=== PATIENT | male | born 1990 | race Caucasian/White ===

== ENCOUNTER 2021-10-02 13:14 | Outpatient (REF) | payer MEDICAID, SELFPAY ==
--- NOTE | ~2021-10-02 | XR_ITS ---
EXAMINATION: XR LUMBOSACRAL SPINE CLINICAL INFORMATION: Low back pain. COMPARISON: None TECHNIQUE: Three views of the lumbosacral spine. FINDINGS: Normal lumbar segmentation with 5 nonrib-bearing lumbar vertebrae of normal height and normal lumbar lordosis. No vertebral compression, spondylolisthesis, disc narrowing, destructive process. No erosive changes. Normal bony mineralization. The SI joints and visualized sacrum are unremarkable. XR/XR lumbar spine 2-3V IMPRESSION: Unremarkable examination.
== END 2021-10-02 13:15 | disposition home or self-care (01) ==
LOC: HO.HMGCX 13:14
PROVIDERS: PCP Internal Medicine; Visit Provider Internal Medicine
DX: M54.50 Low back pain, unspecified (principal)
CPT/HCPCS: 72100